=== PATIENT | female | born 1960 | race African-American/Black ===

== ENCOUNTER 2016-06-15 04:33 | Day surgery (SDC) | payer OTHER ==
[2016-06-09 10:13] LABS: HEMATOCRIT 38.9 % (36.0-48.0); HEMOGLOBIN 13.2 g/dL (12.0-16.0)
[2016-06-09 10:28] LABS: CALCIUM, SERUM 8.9 MG/DL (8.5-10.4); CHLORIDE, SERUM 104 MMOL/L (96-112); CO2 (CARBON DIOXIDE) 29 MMOL/L (24-34); CREATININE 0.69 MG/DL (0.55-1.02); GFR AFRICAN AMERICAN 114 ML/MIN (>=60); GFR NON AFRICAN AMERICAN 98 ML/MIN (>=60); GLUCOSE, SERUM 106 MG/DL (60-99); POTASSIUM, SERUM 3.8 MMOL/L (3.5-5.3); SODIUM, SERUM 141 MMOL/L (135-148)
[2016-06-09 10:30] LABS: BUN (BLOOD UREA NITROGEN) 22 MG/DL (6-23)
--- NOTE | ~2016-06-15 | OP ---
Record Of Operation [facility] [address] [place]. [address] NAME: LINDSEY NOWAK : 60 STATUS : REG [facility]#: [id number] AGE: 55 ADM/REG DATE : 06/15/16 MR#: [id number] REPORT SERV DATE: 06/16/16 DICTATED BY: CYNTHIA HAWKINS II DATE: 06/16/16 REPORT STATUS : Draft TRANSCRIBED BY: MODL DATE: 06/16/16 DATE OF PROCEDURE: 06/15/2016 PREOPERATIVE DIAGNOSES: 1. Right lower extremity radiculopathy greater than left lower extremity radiculopathy. 2. L4-5 stenosis. 3. Right L5-S1 herniated nucleus pulposus. POSTOPERATIVE DIAGNOSES: 1. Right lower extremity radiculopathy greater than left lower extremity radiculopathy. 2. L4-5 stenosis. 3. Right L5-S1 herniated nucleus pulposus. 4. Severe facet arthrosis, L4-5. PROCEDURES: 1. Laminectomy, L4-L5. 2. Right L5-S1 laminotomy to include minimal discectomy. 3. Use of the microscope and stereotactic spinal imaging. SURGEON: Cynthia Hawkins M.D. FLUIDS: 1 L lactated Ringer. ESTIMATED BLOOD LOSS: 15 mL. DRAINS: None. COMPLICATIONS: None. ANTIBIOTIC: Preoperatively. PREOPERATIVE HISTORY: This is a very friendly, 55-year-old, female, who reports some back pain, but predominantly pain is radiating into the right buttock and into the posterior thigh and leg. She reports some simultaneous pain into the left buttock and thigh. We discussed the pros and cons of surgery. We discussed the merits of surgery as well as the risks. She wished to proceed. We discussed the fact that if her facet arthrosis worsens she could develop instability from a degenerative perspective. We discussed that a more complete facetectomy and fusion could be required if recurrent leg pain and/or instability was diagnosed down the road. DESCRIPTION OF PROCEDURE: After informed consent was obtained, Ms Nowak was brought to the operating room at her request. I also was able to discuss this surgery with her before and after surgery. The patient underwent general anesthesia and was placed in the prone position and the back was prepped and draped in a sterile fashion. The stereotactic spinal pin was placed. The Record Of Operation [facility] [address] [address] NAME: LINDSEY NOWAK : 60 STATUS : REG [facility] PAT#: [id number] AGE: 55 ADM/REG DATE : 06/15/16 MR#: [id number] REPORT SERV DATE: 06/16/16 DICTATED BY: CYNTHIA HAWKINS II DATE: 06/16/16 REPORT STATUS : Draft TRANSCRIBED BY: MODL DATE: 06/16/[address] scan was completed following placement of the stereotactic pin into the left iliac crest. Stereotactic guidance was then used throughout the case. Next, a minimally invasive incision was performed on the right at L4-5 and L5-S1. The quadrant retractor was placed followed by use of the microscope. Under microscopic visualization, the facet capsule was protected at L4-5. The spinolaminar junction was now taken down with the high-speed bur and the Kerrison rongeurs and the curettes. The ligamentum flavum was significantly more hypertrophic than I had anticipated. This was removed and the dura well decompressed centrally. Both lateral recesses were addressed but more so on the right with more removal of the facet. Less than 50% of the facet was removed on the right. The L5 nerve root was now found to be well decompressed following adequate removal of the inferior facet. At this point, the L4 nerve root was evaluated and the foramen and no significant compression noted. The central canal again had been well decompressed at this point. Next, we turned our attention to the L5-S1 level. The laminotomy was performed with the high-speed bur and the Kerrison rongeurs and the curettes. The HNP was found to have a significant calcification to it. The dorsal unroofing of the S1 nerve root appeared to give the nerve root adequate decompression away from the compression from the disc osteophyte complex. I did remove a very minimal amount of the disc osteophyte complex. Again, the nerve root appeared to be very well decompressed at this point. Irrigation was performed followed by confirmation of hemostasis. A standard closure was performed using standard technique followed by placement of sterile dressings. The patient was then extubated and transferred to PACU in stable condition. She was given appropriate follow up and activities as tolerated. We will also allow her to return to work when she feels up to it. JOJO/GLADIS Cynthia Hawkins II, M.D. / [id number] CC: Richy Garcia II, M.D.
[~2016-06-15 04:33] MED LIST: ACID REDUCER; CARVEDILOL; COREG6 PO; FLEX PO; KDUR10 PO; LIOR10 PO; MAX25 PO; MAXZIDE PO; NAP375 PO; NORCO1 TA2 PO; POTASSIUM; PRILO PO; PRILOSEC OTC20 MG PO; ZOL100 PO; ZOLOFT; [UNRECOGNIZED DRUG - MIXTURE] SL
== END 2016-06-15 23:59 | disposition home or self-care (01) ==
LOC: SDC 04:33
PROVIDERS: Orthopaedic Surgery
PROC: 0ST20ZZ Resection of Lumbar Vertebral Disc, Open Approach (ICD-10-PCS; principal; 2016-06-15 05:45)
PROC: 01NB0ZZ Release Lumbar Nerve, Open Approach (ICD-10-PCS; 2016-06-15 05:45)
DX: M51.17 Intervertebral disc disorders with radiculopathy, lumbosacral region (principal); M48.07 Spinal stenosis, lumbosacral region; I10 Essential (primary) hypertension; Z88.0 Allergy status to penicillin; Z90.49 Acquired absence of other specified parts of digestive tract; Z68.43 Body mass index [BMI] 50.0-59.9, adult
CPT/HCPCS: 80048; 85014; 85018; 88304; 88311; 93005; A9270-GY; J0360; J0690; J1030; J1885; J2250; J2270; J2405; J2710; J3010